=== PATIENT | female | born 1995 ===

== ENCOUNTER 2023-04-05 23:53 | Emergency (ER) | payer SELFPAY ==
--- NOTE | ~2023-04-05 | XR_ITS ---
EXAMINATION: XR SHOULDER, RIGHT CLINICAL INFORMATION: Pain. COMPARISON: None available. TECHNIQUE: Two views of the right shoulder. FINDINGS: The bones and soft tissues are normal. No fracture. Glenohumeral and acromioclavicular alignment is anatomic with normal joint space. No abnormal soft tissue calcifications. XR/XR shoulder RT min 2V IMPRESSION: Normal right shoulder.
--- NOTE | ~2023-04-05 | CT_ITS ---
EXAMINATION: CT CERVICAL SPINE WITHOUT CONTRAST CLINICAL INFORMATION: Fall. COMPARISON: None available. TECHNIQUE: Multidetector CT imaging of the cervical spine was performed without the use of intravenous contrast. Coronal and sagittal reformats created on an independent workstation were reviewed. This CT examination was performed using dose optimization techniques as appropriate, variously including the following: *Automated exposure control *Adjustment of mA and/or kV according to patient size (this includes techniques or standardized protocols for targeted exams where dose is matched to indication/reason for exam; i.e. extremities or head) *Use of iterative reconstruction technique DLP: 461 mGy-cm FINDINGS: Atlantooccipital alignment is maintained. The vertebral bodies and posterior elements align normally. No acute fracture or subluxation. Vertebral body heights and intervertebral disc spaces are preserved. No significant degenerative changes are appreciated. No central canal or foraminal narrowing. The cervicomedullary junction and spinal cord are grossly unremarkable. The paraspinal soft tissues are unremarkable. The imaged lung apices are clear. CT/CT cervical spine wo IV con IMPRESSION: No acute cervical spine fracture or traumatic malalignment.
--- NOTE | ~2023-04-05 | CT_ITS ---
EXAMINATION: CT HEAD WITHOUT CONTRAST CLINICAL INFORMATION: Fall COMPARISON: None available. TECHNIQUE: Contiguous axial imaging was performed from the skull base to vertex without intravenous administration of contrast. This CT examination was performed using dose optimization techniques as appropriate, variously including the following: *Automated exposure control *Adjustment of mA and/or kV according to patient size (this includes techniques or standardized protocols for targeted exams where dose is matched to indication/reason for exam; i.e. extremities or head) *Use of iterative reconstruction technique DLP: 531 mGy-cm FINDINGS: There is no evidence of acute intracranial hemorrhage or territorial infarction. No abnormal mass effect or midline shift is seen. Balderrama to white matter differentiation is well preserved. No extra-axial fluid collections are identified. No hydrocephalus. No significant volume loss. There is no abnormal attenuation within the brain parenchyma. No acute osseous or soft tissue abnormality. The mastoid air cells and visualized portions of the paranasal sinuses are well aerated. CT/CT head/brain wo IV con IMPRESSION: No acute intracranial pathology.
[2023-04-05 23:56] VITALS: BP 131/75; PULSE 69; RESP 18; TEMP 36.7; O2SAT 100; BMI 25.1
[2023-04-06 03:27] LABS: HCG Quantitative < 2 mIU/mL
--- NOTE | 2023-04-06 04:58 | ED_ITS ---
HPI - Fall General Chief Complaint: Fall Stated Complaint: Fall/Hit head/Vomiting Time Seen by Provider: 04/06/23 02:53 History of Present Illness HPI Narrative: Patient is a 27-year-old female she reported a mechanical fall in a store earlier today was striking her head. Denies any loss of consciousness. Has headache has shoulder pain at neck pain. No fever no chills. No diaphoresis. Positive pain to the right shoulder as well. Related Data Previous Rx's Medication Instructions Recorded cyclobenzaprine 10 mg tablet 10 mg PO TID PRN pain #14 tabs 04/06/23 ibuprofen 400 mg tablet 400 mg PO Q6H PRN pain #20 tabs 04/06/23 Allergies Allergy/AdvReac Type Severity Reaction Status Date / Time No Known Allergies Allergy Verified 04/06/23 02:47 [facility] Past Medical History Attestation statement: The following information was validated with the patient. Social History Social History Advance Directives: No Advance Directives Information Provided: Yes Physical Exam Vital Signs: Vital Signs: Last Vital Signs Temp 98.1 F 04/05/23 23:56 Pulse 69 04/05/23 23:56 Resp 18 04/05/23 23:56 BP 131/75 04/05/23 23:56 Pulse Ox 100 04/05/23 23:56 O2 Del Method Room Air 04/05/23 23:56 BMI result Body Mass Index 25.1 Appearance: Alert. Oriented X3. No acute distress. Eyes: Pupils equal, round and reactive to light. ENT: Pharynx normal. No midface tenderness. No malocclusion. Neck: Normal inspection. Positive C-spine tenderness. No lymph nodes noted. No crepitus CVS: Normal heart rate and rhythm. Pulses normal. Normal S1 and S2 Respiratory: No respiratory distress. Breath sounds normal. No Wheezing. No rales Abdomen: Soft and nontender. No rigidity. No distention. good BS x4 Skin: Skin warm and dry. Normal skin color. Normal skin turgor. Extremities: No lower extremity edema. Neurovascular intact to all extremities. No Lacerations. No Rash. Positive pain to the right shoulder. Worsen with movement. Sensation intact. No clavicular tenderness elicited. Skin intact. Pulse 2 + at radial. Movement of the hand wrist elbow intact. Neuro: Oriented X 3. No motor deficit. No sensory deficit. Moving all extermities. No slurred speech Medical Decision Making Medical Decision Making [facility] Narrative: Patient is status post mechanical fall hit the back of her head landed the right shoulder as well. CT scan of the head was grossly negative for any acute evidence of bleeding. No fracture. Patient's CT of the C-spine was done based on nexus criteria she has tenderness on palpation. It was grossly negative for any acute evidence of fracture no malalignment. Patient's x-ray of the shoulder showed no acute fracture. Will give patient Motrin for pain. Rest head injury precaution. Close follow-up on an outpatient basis. Differential Diagnosis Differential Diagnoses: The differential diagnosis associated with the presentation includes Head injury, intracranial bleed, skull fracture, spine fracture Admission/Observation Consideration of admission/observation: Escalation of care including admission/observation considered Lab Data [facility] Lab Attestation statement: I reviewed the patient's lab results. Labs: Lab Results 04/06/23 Range/Units 02:53 Beta HCG, Quant < 2 mIU/mL Independent Interpretation I performed an independent interpretation of an: CT Scan Interpretation: CT scan of the head was grossly negative for any acute evidence of bleeding Radiology Impression Discussion of test interpretation with radiology: I have reviewed the radiologist's reading. Discharge Plan Discharge Clinical Impression: Head injury, Acute neck sprain, Acute shoulder pain Patient Disposition: Home, Self-Care Instructions: Head Injury (ED), Shoulder Pain (ED) Prescriptions: New cyclobenzaprine 10 mg tablet 10 mg PO TID PRN (Reason: pain) Qty: 14 0RF ibuprofen 400 mg tablet 400 mg PO Q6H PRN (Reason: pain) Qty: 20 0RF Referrals: [facility] [Physician] -
--- NOTE | 2023-04-06 05:08 | MHC.EDTECH ---
Applied cervical collar, Pt tolerated well. SG
== END 2023-04-06 06:17 | disposition home or self-care (01) ==
PROVIDERS: Emergency Provider Emergency Medicine Emergency Medical Services
DX: S09.90XA Unspecified injury of head, initial encounter (principal); S13.9XXA Sprain of joints and ligaments of unspecified parts of neck, initial encounter; W01.0XXA Fall on same level from slipping, tripping and stumbling without subsequent striking against object, initial encounter; M25.511 Pain in right shoulder; Y93.89 Activity, other specified; Y92.512 Supermarket, store or market as the place of occurrence of the external cause; Y99.9 Unspecified external cause status; Z79.899 Other long term (current) drug therapy
CPT/HCPCS: 36415; 70450; 72125; 73030; 84702; 99282; 99284